=== PATIENT | male | born 1995 | race Caucasian/White ===

== ENCOUNTER 2018-09-10 19:40 | Emergency (ER) | payer OTHER, MEDICAID, SELFPAY ==
--- NOTE | 2018-09-10 | DI.CT.S_ITS ---
PROCEDURE: CT ABDOMEN PELVIS W CON INDICATIONS: RIGHT SIDED ABDOMINAL PAIN TECHNIQUE: After the administration of intravenous contrast, 5 mm thick sections acquired from the diaphragm to the symphysis. 5 mm coronal and sagittal reformats were acquired. For radiation dose reduction, the following was used: automated exposure control, adjustment of mA and/or kV according to patient size. COMPARISON: None. FINDINGS: Image quality: Excellent. ABDOMEN: Lung bases: Lung bases are clear. Heart size is normal. Solid organs: Liver is normal in size and enhancement. Gallbladder is contracted. Biliary system is non dilated. Pancreas enhances normally. Spleen is normal in size and enhancement. No adrenal nodules. Kidneys demonstrate normal size and enhancement, without hydronephrosis. Peritoneum and bowel: Bowel loops demonstrate normal wall thickness and caliber. No free fluid or air. A normal appendix is identified. Nodes and vessels: No retroperitoneal or mesenteric adenopathy by size criteria. Aorta and inferior vena cava are normal in size. Miscellaneous: No ventral hernias. PELVIS: Genitourinary: Bladder wall thickness is normal. Miscellaneous: No inguinal hernias or adenopathy. Bones: No suspicious bony lesions. No vertebral body compression fractures. IMPRESSION: 1. No evidence of acute appendicitis or renal stone disease or hydronephrosis. 2. Otherwise unremarkable CT of the abdomen and pelvis with contrast. Dictated by: Jayro Villasenor M.D. on 09/10/2018 at 21:48 Approved by: Jayro Villasenor M.D. on 09/10/2018 at 21:52
[2018-09-10 19:51] VITALS: BP 148/93; PULSE 94; RESP 16; TEMP 36.8; O2SAT 99; BMI 20.2
--- NOTE | 2018-09-10 20:10 | ED.CHESTPAIN ---
HPI - Chest Pain General Chief Complaint: Chest Pain Stated Complaint: states pain in his lung, with mulitple other compl Time Seen by Provider: 09/10/18 20:09 Source: patient Mode of arrival: ambulatory Limitations: no limitations History of Present Illness HPI narrative: 23-year-old male here for evaluation of multiple complaints. He states that he has recently been on a multi [place] dri[place]. He states that over the past 3 months he has had a 25 lb weight loss. He states that he noticed a lymph node in the left side of his neck. He was also complaining of left shoulder pain without any injury. He also complains of right lower quadrant abdominal pain and also a mass on his right testicle. Denies any urinary symptoms. He states that the mass on his right testicle is not changed for many years. He states he went to his primary doctor who told him to come to the emergency department for evaluation. Related Data Allergies Allergy/AdvReac Type Severity Reaction Status Date / Time acetaminophen Allergy Verified 09/10/18 19:51 Review of Systems Constitutional Denies fatigue, Denies fever(s), Denies headache(s) and Reports weight loss ENT Ears, Nose, Mouth, and Throat: Denies vertigo and Denies headache(s) Cardiovascular Denies chest pain, Denies edema, Denies palpitations and Denies dyspnea Respiratory Denies cough and Denies dyspnea Gastrointestinal Gastrointestinal: Reports abdominal pain, Denies change in stool character, Denies nausea and Denies vomiting Genitourinary Denies hematuria, Denies genital lesions, Denies genital pain, Denies dysuria, Denies flank pain, Denies scrotal swelling, Reports testicular mass, Denies testicular pain and Denies urinary frequency Musculoskeletal Denies back pain, Denies myalgias, Reports arthralgias (Left shoulder), Denies joint swelling, Denies limited range of motion and Denies muscle weakness Integumentary/Breasts Denies lesions and Denies rash Neurologic Denies confusion, Denies vertigo and Denies headache(s) Psychiatric Denies anxiety, Denies confusion and Denies depression Endocrine Denies fatigue and Denies palpitations Hematologic/Lymphatic Denies easy bleeding and Denies easy bruising Allergic/Immunologic Denies urticaria [facility] Medical History Patient denies medical problems (Acute) Social History Smoking Status: Unknown if ever smoked Social History Smoking Status: Unknown if ever smoked Exam Initial Vital Signs Initial Vital Signs: Vital Signs Temperature 98.2 F 09/10/18 19:51 Pulse Rate 94 H 09/10/18 19:51 Respiratory Rate 16 09/10/18 19:51 Blood Pressure 148/93 H 09/10/18 19:51 Pulse Oximetry 99 09/10/18 19:51 Const General: cooperative, comfortable, well developed, well groomed and No acute distress Nutritional Appearance: thin Orientation: alert, awake and oriented x3 HENMT Head: normal to inspection and normocephalic Neck Lymphatic: lymphadenopathy (Bilateral anterior cervical lymphadenopathy not tender to palpation) Resp Effort & Inspection: normal respiratory effort Auscultation: clear to auscultation bilaterally Cardio Rate: regular rate Rhythm: regular rhythm GI Inspection: non-distended Palpation: soft, No firm, No hernia and tender (Right lower quadrant without rebound or guarding) Other: No bilateral inguinal hernias External: circumcised Penis: normal penis Meatus: meatus normal Scrotum: scrotum normal, not erythematous and no scrotal swelling Testes: testicular lie normal and not enlarged Other: Patient with what appears to be a soft mass that is difficult to distinguish whether not it is attached to the testicle on the right side. Back/Spine/Pelvis Back: No CVA tenderness Skin Lesions: no lesions Rashes: no rashes Neuro General: alert, awake and oriented x3 Cognition: normal cognition Speech: speech normal Gait: normal gait Extrem General: normal to inspection and capillary refill normal Psych Appearance: grossly normal and well kempt Mood: anxious mood Course Orders Ordered: ED Orders 09/10/18 20:22 CT abdomen pelvis w con Stat US scrotum Stat XR chest 1V Stat 09/10/18 20:45 Basic Metabolic Panel Stat Complete Blood Count AUTO DIFF Stat Discontinued Medications Sodium Chloride (Normal Saline 0.9%) 1,000 mls @ 1,000 mls/hr IV BOLUS ONE Stop: 09/10/18 21:20 Last Infusion: 09/10/18 22:44 Dose: 0 mls/hr Admin: 09/10/18 21:22 Dose: 1,000 mls/hr Vital Signs - 8 hr 09/10/18 19:51 09/10/18 22:45 Temperature 98.2 F Pulse Rate 94 H 76 Respiratory Rate 16 Blood Pressure 148/93 H 146/95 H Pulse Oximetry 99 100 MDM - Chest Pain Lab Data Attestation: I reviewed the patient's lab results. Result diagrams: 09/10/18 20:45 09/10/18 20:45 Lab Results 09/10/18 09/10/18 Range/Units 20:45 20:45 WBC 7.6 (4.5-11.0) X10^3/uL RBC 5.73 (4.5-5.9) X10^6/uL Hgb 16.4 (13.5-17.5) g/dL Hct 49.1 (41-53) % MCV 85.6 (80-100) fL MCH 28.6 (26-34) PG MCHC 33.4 (30-36) % RDW 13.2 (11.6-14.8) % Plt Count 214 (150-400) X10^3/uL Neut % (Auto) 64.7 (50-75) % Lymph % (Auto) 27.1 (25-40) % Taliaferro % (Auto) 6.5 (3-14) % Eos % (Auto) 1.2 L (2-4) % Baso % (Auto) 0.5 (0-2) % Neut # (Auto) 4900 (9050-1047) /uL Lymph # (Auto) 2100 (4772-8191) /uL Taliaferro # (Auto) 500 (0-900) /uL Eos # (Auto) 100 (0-450) /uL Baso # (Auto) 0 (0-100) /uL Sodium 142 (137-145) mmol/L Potassium 3.6 (3.4-5.1) mmol/L Chloride 103 (98-107) mmol/L Carbon Dioxide 27 (22-32) mmol/L BUN 18 (9-20) mg/dL Creatinine 1.00 (0.66-1.25) mg/dL Estimated GFR > 60.0 (>60) mL/min BUN/Creatinine Ratio 18.0 (6-22) Glucose 89 (70-100) mg/dL Calcium 10.2 (8.4-10.2) mg/dL Imaging Data CT scan - abdomen: Radiologist's impression: [address] [address] [address] Scan Report Signed Patient: [facility]#: [id number] : 1995Acct:[id number] Age/Sex: 23 / MDate of Service: 09/10/18 Loc: ED Accession Number: [id number] Procedure: CT abdomen pelvis w con Ordering Provider: Joe Copeland D.O. PROCEDURE: CT ABDOMEN PELVIS W CON INDICATIONS: RIGHT SIDED ABDOMINAL PAIN TECHNIQUE: After the administration of intravenous contrast, 5 mm thick sections acquired from the diaphragm to the symphysis. 5 mm coronal and sagittal reformats were acquired. For radiation dose reduction, the following was used: automated exposure control, adjustment of mA and/or kV according to patient size. COMPARISON: None. FINDINGS: Image quality: Excellent. ABDOMEN: Lung bases: Lung bases are clear. Heart size is normal. Solid organs: Liver is normal in size and enhancement. Gallbladder is contracted. Biliary system is non dilated. Pancreas enhances normally. Spleen is normal in size and enhancement. No adrenal nodules. Kidneys demonstrate normal size and enhancement, without hydronephrosis. Peritoneum and bowel: Bowel loops demonstrate normal wall thickness and caliber. No free fluid or air. A normal appendix is identified. Nodes and vessels: No retroperitoneal or mesenteric adenopathy by size criteria. Aorta and inferior vena cava are normal in size. Miscellaneous: No ventral hernias. PELVIS: Genitourinary: Bladder wall thickness is normal. Miscellaneous: No inguinal hernias or adenopathy. Bones: No suspicious bony lesions. No vertebral body compression fractures. IMPRESSION: 1. No evidence of acute appendicitis or renal stone disease or hydronephrosis. 2. Otherwise unremarkable CT of the abdomen and pelvis with contrast. Dictated by: Jayro Villasenor M.D. on 09/10/2018 at 21:48 Approved by: Jayro Villasenor M.D. on 09/10/2018 at 21:52 Scrotal ultrasound: Radiologist's impression: Jean Carlos Gee 23 M [address] [address] Ultrasound Report Signed Patient: Jean Carlos Gee [facility]#: [id number] : 1995Acct:[id number] Age/Sex: / MDate of Service: 09/10/18 Loc: ED Accession Number: [id number] Procedure: US scrotum Ordering Provider: Joe Copeland D.O. PROCEDURE: US SCROTUM INDICATIONS: RIGHT TESTICULAR MASS TECHNIQUE: Real-time scanning was performed of the scrotum and testicles, with image documentation. Color and pulse Doppler interrogation was performed of both testicles. COMPARISON: [facility], CT, CT ABDOMEN PELVIS W CON, 09/10/2018, 21:17. FINDINGS: Right: Testicle is normal in size at 3.7 x 2.1 with 3.1 cm, and homogenous in echotexture. Epididymis is normal in overall size and morphology. No hydrocele or varicoceles. Overlying scrotal skin is normal in thickness. Left: Testicle is normal in size at 3.6 x 2.2 x 2.1 cm, and homogeneous in echotexture. Epididymis is normal in overall size and morphology. No hydrocele or varicoceles. Overlying scrotal skin is normal in thickness. Doppler: Color and pulse Doppler demonstrate normal and symmetric arterial flow in both testicles. IMPRESSION: Unremarkable scrotal ultrasound. No evidence of right testicular mass. Dictated by: Jayro Villasenor M.D. on 09/10/2018 at 22:06 Approved by: Jayro Villasenor M.D. on 09/10/2018 at 22:07 Chest x-ray: Radiologist's impression: No acute pathology MDM Narrative Medical decision making narrative: Given his weight loss in the lymphadenopathy in the mass in his right testicle I felt that it was warranted that he obtain CT scans here in the emergency department to evaluate for testicular cancer especially given his age. The ultrasound was negative. The CT scan of his abdomen was unremarkable not showing any signs of appendicitis or enlarged lymph nodes. The chest x-ray shows no changes. His labs were unremarkable. Is fairly anxious. Prior report shows that he has been on anxiety medications in the past. Will hold on further workup for now. He was instructed he needed to contact his primary care provider for follow-up. He expressed understanding and agreement with plan. Discharge Plan Departure Patient Disposition: Home Clinical Impression: Abdominal pain Qualifiers: Abdominal location: generalized Qualified Code(s): R10.84 - Generalized abdominal pain Left shoulder pain Qualifiers: Chronicity: chronic Qualified Code(s): M25.512 - Pain in left shoulder Discharge Date/Time: 09/10/18 22:46 Interventions: ED Discharge Assessment Last Done: 09/10/18 22:45 Instructions: DI for Abdominal Pain-Adult, DI for Anxiety -- Adult Activity Restrictions/Additional Instructions: Contact your primary care doctor for followup pain to discuss and treatment for your anxiety. Return to the emergency department for any new symptoms.
--- NOTE | 2018-09-10 20:22 | DI.US.S_ITS ---
PROCEDURE: US SCROTUM INDICATIONS: RIGHT TESTICULAR MASS TECHNIQUE: Real-time scanning was performed of the scrotum and testicles, with image documentation. Color and pulse Doppler interrogation was performed of both testicles. COMPARISON: [facility], CT, CT ABDOMEN PELVIS W CON, 09/10/2018, 21:17. FINDINGS: Right: Testicle is normal in size at 3.7 x 2.1 with 3.1 cm, and homogenous in echotexture. Epididymis is normal in overall size and morphology. No hydrocele or varicoceles. Overlying scrotal skin is normal in thickness. Left: Testicle is normal in size at 3.6 x 2.2 x 2.1 cm, and homogeneous in echotexture. Epididymis is normal in overall size and morphology. No hydrocele or varicoceles. Overlying scrotal skin is normal in thickness. Doppler: Color and pulse Doppler demonstrate normal and symmetric arterial flow in both testicles. IMPRESSION: Unremarkable scrotal ultrasound. No evidence of right testicular mass. Dictated by: Jayro Villasenor M.D. on 09/10/2018 at 22:06 Approved by: Jayro Villasenor M.D. on 09/10/2018 at 22:07
--- NOTE | 2018-09-10 20:22 | DI.RAD.S_ITS ---
PROCEDURE: XR CHEST 1V INDICATIONS: left sided chest pain TECHNIQUE: One view of the chest was acquired. COMPARISON: None. FINDINGS: Surgical changes and devices: None. Lungs and pleura: Lungs are clear. No pleural effusions or pneumothorax. Mediastinum: Mediastinal contours appear normal. Heart size is normal. Bones and chest wall: No suspicious bony lesions. Overlying soft tissues appear unremarkable. IMPRESSION: No evidence acute pulmonary process. Dictated by: Jayro Villasenor M.D. on 09/10/2018 at 21:08 Approved by: Jayro Villasenor M.D. on 09/10/2018 at 21:09
[2018-09-10 20:52] LABS: Add Manual Diff / Slide Review NO; Basophils Absolute Auto 0 /uL (0-100); Basophils Percent Auto 0.5 % (0-2); Eosinophils Absolute Auto 100 /uL (0-450); Eosinophils Percent Auto 1.2 % (2-4); Hematocrit 49.1 % (41-53); Hemoglobin 16.4 g/dL (13.5-17.5); Lymphocytes Absolute Auto 2100 /uL (1100-4500); Lymphocytes Percent Auto 27.1 % (25-40); Mean Corpuscular HGB Conc 33.4 % (30-36); Mean Corpuscular Hemoglobin 28.6 PG (26-34); Mean Corpuscular Volume 85.6 fL (80-100); Monocytes Absolute Auto 500 /uL (0-900); Monocytes Percent Auto 6.5 % (3-14); Neutrophils Absolute Auto 4900 /uL (1500-7000); Neutrophils Percent Auto 64.7 % (50-75); Platelet Count 214 X10^3/uL (150-400); Red Blood Cell Count 5.73 X10^6/uL (4.5-5.9); Red Cell Distribution Width 13.2 % (11.6-14.8); White Blood Cell Count 7.6 X10^3/uL (4.5-11.0)
[2018-09-10 21:03] LABS: Blood Urea Nitrogen 18 mg/dL (9-20); Calcium 10.2 mg/dL (8.4-10.2); Carbon Dioxide 27 mmol/L (22-32); Chloride 103 mmol/L (98-107); Estimated Glomerular Filt Rate > 60.0 mL/min (>60); Glucose 89 mg/dL (70-100); HEMOLYSIS 17 (0-50); Potassium 3.6 mmol/L (3.4-5.1); Sodium 142 mmol/L (137-145)
[2018-09-10] MEDS: SODIUM CHLORIDE 0.9% 1,000 ML 1000 ML IV (21:22)
[2018-09-10 22:45] VITALS: BP 146/95; PULSE 76; O2SAT 100
== END 2018-09-10 22:46 | disposition home or self-care (01) ==
PROVIDERS: Emergency Provider Emergency Medicine
DX: R10.84 Generalized abdominal pain (principal); R59.9 Enlarged lymph nodes, unspecified; M25.512 Pain in left shoulder; R63.4 Abnormal weight loss; Q55.29 Other congenital malformations of testis and scrotum
CPT/HCPCS: 36591; 71045; 74177; 76870; 80048; 85025; 96360; 99283; 99284; Q9967

== ENCOUNTER 2021-12-26 22:32 | Emergency (ER) | payer OTHER, MEDICAID, SELFPAY ==
[2021-12-26 22:47] VITALS: BP 128/72; PULSE 80; RESP 16; TEMP 37.2; O2SAT 99; BMI 22.3
== END 2021-12-26 23:15 | disposition left against medical advice (07) ==
PROVIDERS: Emergency Provider Emergency Medicine
CPT/HCPCS: 99281